=== PATIENT | female | born 1940 | race Caucasian/White ===

== ENCOUNTER → 2017-03-03 | Outpatient (CLI) | payer MEDICARE ==
--- NOTE | 2017-03-03 16:25 | US ---
EXAM DESCRIPTION: Carotid Duplex: ULTRASOUND. CLINICAL HISTORY: MIXED HYPERLIPIDEMIA COMPARISON: MRI scan of the brain on the same visit. TECHNIQUE: Transcutaneous scanning utilizing 2-dimensional and Doppler modes to evaluate the bilateral carotid systems and vertebral arteries. Percentage of diameter of stenosis or no stenosis recorded will be based upon NASCET criteria. FINDINGS: Peak systolic/end diastolic (CM-Sec) CCA Right 79/9 Left 88/14. ICA Right proximal 75/15, mid 101/20. Left proximal 52/14, Distal 74/15. Vertebral Right 55/6 Left 51/10. ECA (PS Only) Right 72/4 left 71/5. ICA/CCA peak systolic ratio: Right 1.3 Left 1.8 ICA/CCA end diastolic ratio: Right 2.3 Left 1.1 Vertebral arteries: antegrade flow. Comments: Lateral atherosclerotic calcification in the common carotid bulbs and proximal ICAs. Turbulent color flow in the mid and distal right ICA with spectral broadening. Area stenosis in the right common carotid bulb is 67%; diameter stenosis 70%. Area stenosis in the proximal right ICA 47%; diameter stenosis 63%. Color turbulent flow in the proximal left ICA with spectral broadening. Area stenosis in the left common carotid bulb 44%; diameter stenosis 58%. Area stenosis in the proximal left ICA 51%; diameter stenosis 48%. IMPRESSION: 1. Doppler evaluation of the bilateral carotid systems and vertebral arteries shows borderline significant/critical stenosis in the right common carotid bulb. Consider correlation with MRA or CTA with contrast. 2. Significant amount of calcified plaque seen in the carotid arteries bilaterally. Bilateral vertebral arteries showed antegrade-cephalad flow. Electronically signed by: Jerry George MD 03/03/2017 4:24 PM CDT
--- NOTE | 2017-03-03 17:24 | MRI ---
EXAM DESCRIPTION: Brain w/o Contrast MRI. CLINICAL HISTORY: TIA, dysarthria one month ago. COMPARISON: The duplex ultrasound evaluation carotid and vertebral vessels on this visit. TECHNIQUE: Multiplanar, high-field MRI unit, multiple diffusion sequences, multiple conventional sequences without contrast. FINDINGS: Multiple bilateral foci of bright FLAIR and T2-weighted signal in the periventricular white matter and suarez-white matter junctions of the cerebral hemispheres . No dominant lesion at the ventricular level and lower tracts. Also similar signal bilateral tracts at the superior basal ganglia. No hemorrhage, no cerebral edema, no mass-effect. Normal signal in the brainstem and cerebellar hemispheres. No hemorrhage, no cerebral edema, no mass-effect. Concordance of the diffusion and non-diffusion sequences with no evidence of acute or subacute infarction. Cortical sulci, ventricles, and other CSF spaces, and the subdural spaces are minimally prominent in the frontal and parietal lobes. No effacement or displacement. No midline shift. No extra-axial hemorrhage. Normal flow signal void in the major vessels of the [place]donado, and the venous sinuses. IACs are symmetric bilaterally. Right FLAIR and T2 signal in the right mastoid air cells. No mass effect with normal signal in the bilateral cerebellopontine angles. Pituitary gland borderline enlarged. No CSF signal in the sella. Metallic susceptibility artifact in the sphenoid air cell region anterior to the sella. Base of the cerebellar tonsils is above the foramen magnum. Muco- periosteal thickening in the superior paranasal sinuses. The bony calvarium is intact. IMPRESSION: 1. Periventricular and subcortical white matter signal changes bilaterally relatively symmetric. Most likely related to cerebral microvascular disease. Less likely related to migraine sequela or demyelinating process. No hemorrhage, no mass effect, no midline shift. 2. Pituitary gland appears slightly enlarged. No CSF in the sella. Possible postsurgical artifact in the sella. Correlate for clinical findings of pituitary dysfunction. 3. Minimal chronic paranasal sinusitis. Right mastoid chronic versus acute sinusitis. Electronically signed by: Jerry George MD 03/03/2017 5:23 PM CDT
== END | disposition home or self-care (01) ==
LOC: MRI 10:28
PROVIDERS: ATTEND Family Medicine
DX: I65.23 Occlusion and stenosis of bilateral carotid arteries (principal); J32.9 Chronic sinusitis, unspecified; I50.9 Heart failure, unspecified; E78.2 Mixed hyperlipidemia

== ENCOUNTER → 2017-03-06 | Outpatient (CLI) | payer MEDICARE | END | disposition home or self-care (01) | LOC: GMAM 15:06 | PROVIDERS: ATTEND Family Medicine | DX: E23.6 Other disorders of pituitary gland (principal); R93.0 Abnormal findings on diagnostic imaging of skull and head, not elsewhere classified ==

== ENCOUNTER → 2017-03-12 | Outpatient (CLI) | payer MEDICARE ==
--- NOTE | 2017-03-13 10:39 | CT ---
EXAM DESCRIPTION: CTA Neck CLINICAL HISTORY: 76 years, Female, STENOSIS COMPARISON: None TECHNIQUE: CTA of the neck was performed with IV contrast including 3D reformatted images. This exam was performed according to our departmental dose-optimization program, which includes automated exposure control, adjustment of the mA and/or kV according to patient size and/or use of iterative reconstruction technique. FINDINGS: All diameter measurements and percent stenosis values in this report are based on NASCET criteria. The aortic arch, innominate and visualized portions of the subclavian arteries are unremarkable. Postoperative changes in the mediastinum are only partially visualized. There are some densely calcified plaque in the right carotid bifurcation resulting in only mild (20-30%) stenosis of the proximal right ICA. More distal portions of the right ICA are unremarkable. There is calcified and noncalcified plaque in the left carotid bifurcation extending into the left ICA without significant left ICA stenosis. The left vertebral artery is dominant, but the vertebral arteries are otherwise unremarkable. Calcification involves cavernous segments of the internal carotid arteries bilaterally. No apical lung lesion. No suspicious thyroid nodule. Degenerative changes are noted at the atlantoodontoid joint. IMPRESSION: Bilateral carotid artery disease as detailed above resulting in only mild (20-30%) right ICA stenosis. No left ICA stenosis. Electronically signed by: Mehul Hathaway MD 03/13/2017 10:38 AM [employer]
== END | disposition home or self-care (01) ==
LOC: CT 10:12
PROVIDERS: ATTEND Family Medicine
DX: I63.239 Cerebral infarction due to unspecified occlusion or stenosis of unspecified carotid artery (principal); I25.10 Atherosclerotic heart disease of native coronary artery without angina pectoris; R93.0 Abnormal findings on diagnostic imaging of skull and head, not elsewhere classified

== ENCOUNTER → 2017-11-11 | Outpatient (CLI) | payer MEDICARE | LOC: GMAM 16:54 | PROVIDERS: ATTEND Family Medicine | DX: R53.82 Chronic fatigue, unspecified (principal); R73.9 Hyperglycemia, unspecified; F51.12 Insufficient sleep syndrome; G47.10 Hypersomnia, unspecified ==

== ENCOUNTER → 2018-01-07 | Outpatient (CLI) | payer MEDICARE ==
--- NOTE | 2018-01-07 16:43 | MRI ---
EXAM DESCRIPTION: Lumbar Spine w/o Contrast : Magnetic Resonance Imaging. CLINICAL HISTORY: OTHER INTERVERTEBRAL DISC DEGENERATION, LUMBAR REGION COMPARISON: None. TECHNIQUE: Multiplanar, multiple standard sequences, non contrast MRI, lumbar spine. FINDINGS: L5-S1: Normal signal in the disc and disc space preserved. Posterior elements unremarkable. Minimal narrowing of the right foramen. Canal and left foramen are patent. L4-5: Disc desiccation and minimal disc space loss. Grade 2 Modic endplate changes anterior and to the right of midline with more disc space loss. Disc spur complex encroaching on the soft tissues and right neural foramen with stenosis. Inferior bulge of the disc in the right side of the canal abutting the descending right L5 nerve and the subarticular recess. Borderline right paracentral canal stenosis. Right facet arthrosis and ligament hypertrophy. Mild narrowing of the left foramen. L3-4: Disc desiccation and moderate disc space loss. Modic type II endplate reactive changes in the midline and more to the left of midline. Posterior broad-based disc bulge with disc spur complex encroaching on the left foramen which is moderately narrowed. Right side L4 spondylolysis. Bilateral facet arthrosis and flavum ligament hypertrophy with borderline canal stenosis. Mild right foraminal narrowing. L2-3: Disc desiccation and posterior broad-based disc bulge. Disc bulging more on the left and below the disc space abutting the left subarticular recess and descending left L3 nerve. Ligament hypertrophy and facet arthrosis with mild to moderate canal narrowing. Anterior and left side Modic type III endplate reactive changes. Encroaching on the foramen which is stenotic and abutting the left L2 nerve. Anterior disc bulging and right foramen patent. Minimal disc space loss. L1-2: Disc desiccation with tiny posterior bulge. Bilateral flavum ligament hypertrophy with mild canal narrowing. Moderate narrowing of the left foramen with right foramen patent. Well-circumscribed hyperintense T1 and T2 signal in the L1 vertebral body. T12-L1: Disc desiccation with tiny posterior bulge. Superior displacement of the inferior endplate with fragmentation and marrow edema involving most of the T12 vertebral body. Not extending into the pedicles on either side. Minimal retropulsion of the inferior T12 endplate but not abutting the conus at this level. Posterior disc bulge but not involving the conus. Bilateral moderate foraminal narrowing. Minimal facet arthrosis. Bilateral T11-12 foramina are patent with no disc bulging or retropulsion into the cord. Marked L1-L4 dextroscoliosis. Paravertebral soft tissues show atrophy paraspinal muscles and psoas muscles more on the left.. Otherwise normal marrow signal in the remaining vertebral bodies and the posterior elements. Vertebral bodies are not compressed at any level. IMPRESSION: 1. Multiple levels of disc degeneration and disc desiccation, disc space loss, spondylosis, facet arthrosis and ligament hypertrophy, canal narrowing or stenosis and foraminal narrowing or stenosis. 2. Moderate spondylosis on the right at L4-5 encroaching on the foramen with stenosis. Also disc bulging into the canal and the right and below the disc space encroaching on the right subarticular recess and the descending right L5 nerve. 3. Moderate spondylosis L3-4 to the left of midline encroaching on the left foramen. Right side L4 pars spondylolysis. Borderline canal stenosis. 4. Advanced spondylosis at L2-3 encroaching on the left foramen with stenosis and abutting the left L2 nerve in the foramen. Posterior inferior left disc bulge below the disc space encroaching on the left subarticular recess and the descending left L3 nerve. 5. Recent compression type vertebral body fracture T12 almost 50% compression centrally and minimal retropulsion of the inferior endplate but not encroaching on the conus which terminates at this level. Bilateral moderate foraminal narrowing at this level. Hemangioma L1 vertebral body. Electronically signed by: Jerry George MD 01/07/2018 4:42 PM CDT
== END ==
LOC: MRI 11:00
PROVIDERS: ATTEND Physician Assistant Medical
DX: M51.36 Other intervertebral disc degeneration, lumbar region (principal); M41.26 Other idiopathic scoliosis, lumbar region; M47.896 Other spondylosis, lumbar region; M51.86 Other intervertebral disc disorders, lumbar region

== ENCOUNTER → 2018-05-20 | Outpatient (CLI) | payer MEDICARE ==
--- NOTE | 2018-05-20 17:00 | MRI ---
EXAM DESCRIPTION: Brain w/wo Contrast: Magnetic Resonance Imaging. CLINICAL HISTORY: 77 years Female NECK PAIN COMPARISON: MRI scan of the brain with contrast 03/03/2017. TECHNIQUE: Multiplanar, high-field MRI, multiple conventional sequences, without and with gadolinium IV contrast. No adverse reactions. Multiple axial diffusion sequences. FINDINGS: On the coronal and sagittal 3-D postcontrast images, there is a 4 x 4.5 mm region of nonenhancement in the adenohypophysis of the anterior and left aspect of the pituitary gland. On the T1 fat saturation postcontrast image, a mass is seen on the right adenohypophysis measuring 4 x 5 mm. No abnormal contour of the gland. No displacement of the infundibulum or expansion of the pituitary gland inferiorly anteriorly or posteriorly. Bilateral small focal regions of bright FLAIR and T2-weighted signal in the periventricular white matter and suarez-white matter junctions of the cerebral hemispheres. Mostly in the frontal lobes. . Irregular lesion in the anterior left basal ganglia, and the anterior limb of the left internal capsule measuring 2.1 cm AP, and 1.4 cm wide, and 2.6 cm craniocaudal. Minimal enhancement seen in the medial and inferior aspect of the lesion with irregular low signal central and lateral in the lesion. On the precontrast T1 images, there is suggestion of minimal hemorrhage in the lesion. Minimal diffusion restriction in the anterior superior aspect of the lesion. The adjacent anterior body of the left lateral ventricle is slightly dilated compared to the contralateral right ventricle. This was not seen on the prior MRI scan. No diffusion restriction. No hemorrhage, no cerebral edema, no mass-effect. Normal contrast enhancement. Normal signal in the brainstem and cerebellar hemispheres. No hemorrhage, no cerebral edema, no mass-effect. Normal contrast enhancement. Concordance of the diffusion and non-diffusion sequences with no evidence of acute or subacute infarction. Cortical sulci, ventricles, and other CSF spaces, and the subdural spaces are normally configured. No effacement or displacement. No midline shift. No extra-axial hemorrhage. Normal contrast enhancement. IACs are symmetric bilaterally. No fluid in the bilateral mastoid air cells. No mass effect in the bilateral Cerebellopontine angles. Normal contrast enhancement. Base of the cerebellar tonsils is at the level of the foramen magnum. Swollen mucosa bilateral turbinates. Minimal mucoperiosteal thickening in the ethmoid air cells. Rudimentary frontal sinuses. The bony calvarium is intact. IMPRESSION: 1. Bilateral pituitary microadenomas in the anterior pituitary gland/adenoma apophysis. No expansion into the sinuses, bone, or suprasellar cistern. Pituitary infundibulum is not displaced. 2. Irregularly marginated lesion in the anterior left basal ganglia also involving the anterior limb of the left internal capsule with superior low signal component. This lesion shows peripheral enhancement, hemorrhage, and diffusion restriction. Adjacent ventricle shows slight dilation. Differential includes evolving hemorrhage, hemorrhagic infarction, or hemorrhagic primary or secondary neoplasm. Recommend repeat follow-up MRI study with T2-weighted and gradient echo sequences for better evaluation. Electronically signed by: Jerry George MD 05/20/2018 4:59 PM [employer]
--- NOTE | 2018-05-20 18:15 | MRI ---
EXAM DESCRIPTION: Cervical Spine: MRI. CLINICAL HISTORY: 77 years Female PAIN back and neck pain. Pituitary disorder COMPARISON: MRI scan of the brain without and with gadolinium contrast and MRI scan of the thoracic spine. TECHNIQUE: Multiplanar, high-field MRI, multiple sequences, non-contrast Cervical spine. FINDINGS: C2-C3: Normal signal in the disc and disc space preserved. Canal and foramina are patent. Trace anterolisthesis. Normal facets bilaterally. C3-C4: Disc space preserved with normal signal in the disc. Trace anterolisthesis. Uncinate spur on the right. Minimal narrowing of the neural foramen. Minimal facet arthrosis. Canal and left neuroforamen are patent. C4-5: Disc desiccation and disc space preserved; minimal posterior bulge. Not touching the cord. Mild canal narrowing. Minimal hypertrophic changes in the left facet. Posterior ligaments prominent. Bilateral neural foramina are patent. C5-C6: Minimal disc desiccation and disc space preserved. Small right uncinate spur and minimal narrowing of the right neural foramen. Mild hypertrophy of the posterior ligaments. Mild narrowing of the canal. Left neuroforamen is patent. C6-C7: Normal signal in the disc and disc space preserved. Tiny posterior midline bulge. Facets are unremarkable. Mild canal narrowing. Bilateral neural foramina are patent. Normal signal in the remaining discs with no bulging. Disc spaces preserved. Canal and neural foramina are patent. Facets are unremarkable. Spinal alignment anatomic. No cord compression or cord edema. Atlantoaxial joint minimal arthrosis and hypertrophy. Base of the cerebellar tonsils is at the level of the foramen magnum. Paravertebral soft tissues unremarkable.. Vertebral bodies are not compressed at any level. Normal marrow signal in the remaining vertebral bodies and the posterior elements. IMPRESSION: Some disc desiccation is seen in bulging, but no significant bulging or herniation. Uncinate spurs and facet spurs at some levels. No significant canal narrowing or stenosis. No significant neural foraminal narrowing or stenosis. Normal signal in the cord with no compression. Electronically signed by: Jerry George MD 05/20/2018 6:[address] [employer]
--- NOTE | 2018-05-20 18:32 | MRI ---
EXAM DESCRIPTION: Thoracic Spine w/o Contrast: Magnetic Resonance Imaging. CLINICAL HISTORY: PAIN IN THORACIC SPINE COMPARISON: MRI scan of the cervical spine and brain on this visit. TECHNIQUE: Multiplanar, multiple standard sequences, non contrast MRI, thoracic spine. FINDINGS: Compression type vertebral body fracture T12 with mostly decompression in the central aspect of the disc more to the right of midline in the left. Fracture also noted on the prior lumbar spine MRI 01/07/2018 with insertion of augmentation material into the central and anterior vertebral body. There has been slight reduction in height on the right and left sides of the vertebral body since the lumbar MRI scan. Retropulsion more prominent on the inferior endplate approximately 5 mm and abutting the distal cord. No marrow edema in the bilateral pedicles. T11-12 disc with normal signal and no posterior bulge. Bilateral facet arthrosis. Canal and foramina are patent. Conus terminates at L1. Left T12-L1 foramen stenotic with moderate to severe right neural foraminal narrowing. Decrease in size of the T6-7 disc space with desiccation signal in the disc. Anterior mild endplate changes and ridging. Approximately 3 mm right posterior disc bulge abutting the cord. Disc or bone bulging also seen above the disc space level abutting the cord. No canal or foraminal stenosis. Similar findings in the anterior T5-T6 disc space with the mid and posterior disc space maintained. No posterior disc bulge. Canal and foramina are patent. Desiccation in the remaining discs. No bulging or herniation. Similar anterior endplate changes at T8-9. Disc spaces are preserved. Canal and foramina are patent. No scoliosis. Facet joints are unremarkable. Cord with normal signal, no compression. Hyperintense circumscribed T1 and T2 signal in the superior T3 vertebral body consistent with a hemangioma. Paravertebral soft tissues are unremarkable. Normal marrow signal in the remaining vertebral bodies and the posterior elements. Remaining vertebral bodies are not compressed at any level. IMPRESSION: 1. Slightly more reduction in height of the central and anterior T12 vertebral body since the prior lumbar MRI scan in January 2018. Retropulsion of the inferior endplate 5 mm abutting the cord. Vertebral body augmentation is been performed since the prior lumbar MRI. Moderate canal narrowing but no neural foraminal stenosis at T11-12. Right T12-L1 foramen is stenotic and nearly stenotic on the left. 2. No compression type vertebral body fractures at other levels. Anterior disc space spondylosis and desiccation at T8-9, T6-7, and T5-6. Posterior right paracentral T6-7 disc bulge with bony hypertrophy abutting the right anterior cord but no compression or canal stenosis. Electronically signed by: Jerry George MD 05/20/2018 6:31 PM [facility]
== END ==
LOC: MRI 08:07
PROVIDERS: ATTEND Family Medicine
DX: E23.6 Other disorders of pituitary gland (principal); D35.2 Benign neoplasm of pituitary gland; M54.12 Radiculopathy, cervical region; M54.6 Pain in thoracic spine

== ENCOUNTER → 2018-06-08 | Outpatient (CLI) | payer MEDICARE ==
--- NOTE | 2018-06-09 08:59 | MRI ---
EXAM DESCRIPTION: Brain w/wo Contrast: Magnetic Resonance Imaging. CLINICAL HISTORY: 77 years Female ABNORMAL IMAGING COMPARISON: MRI scan of the brain and pituitary gland without and with gadolinium, 05/20/2018. MRI scan of the brain without contrast 03/03/2017.. TECHNIQUE: Multiplanar, high-field MRI, multiple conventional sequences, without and with gadolinium IV contrast. No adverse reactions. Multiple axial diffusion sequences. FINDINGS: Again noted is a elongated irregular region of abnormal signal within base in the anterior left basal ganglia and extending superiorly and medially across the anterior limb of the left internal capsule. Involving the centrum semiovale abutting the anterior body of the left lateral ventricle and the frontal horn of the left lateral ventricle. No mass effect on the anterior lateral ventricle but slight dilation. Enhancement in the inferior aspect of the lesion in the anterior left basal ganglia and the centrum semiovale. No significant diffusion restriction. No hemosiderin or old hemorrhage. Normal flow signal void in the major vessels of the [place], and the venous sinuses. IACs are symmetric bilaterally. Normal signal in the bilateral mastoid air cells. No mass effect in the bilateral cerebellopontine angles. Normal contrast enhancement. Pituitary gland occupies most of the sella. Normal contrast enhancement. Base of the cerebellar tonsils is above the foramen magnum. Minimal mucoperiosteal thickening in the bilateral paranasal sinuses. The bony calvarium is intact. IMPRESSION: Lesion in the left basal ganglia extending superiorly across the left anterior limb internal capsule to the anterior left frontal centrum semiovale. Superior region of encephalomalacia in the centrum semiovale. Irregular hyperintensity T1 pre and postcontrast, so enhancement less likely. Minimal hypointensity on GRE, T2*. Minimal if any diffusion restriction. Atrophy with no mass effect and slight enlargement of the anterior body of the left ventricle. 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 The onset was in the interval since MRI scan of February 2017. Otherwise matter changes are age-related and/or cerebral microvascular disease, stable since February 2017. Electronically signed by: Jerry George MD 06/09/2018 8:57 AM [facility] [email or web address]]
== END ==
LOC: MRI 09:00
PROVIDERS: ATTEND Family Medicine
DX: R93.0 Abnormal findings on diagnostic imaging of skull and head, not elsewhere classified (principal)

== ENCOUNTER 2018-06-09 11:22 | Emergency (ER) | payer MEDICARE ==
[2018-06-09] MEDS ORDERED: SODIUM CHLORIDE 0.9% (FLUSH) 10 ML SYG IV PRN (11:32)
--- NOTE | 2018-06-09 11:35 | ED.PDOC ---
History of Present Illness - General Chief Complaint: Neuro Symptoms/Deficits Stated Complaint: AMS PER EMS Time Seen by Provider: 06/09/18 11:27 Source: police, EMS Exam Limitations: other - ACUTE DELIRIUM - History of Present Illness Initial Comments: H/O TIA 2017. PT WAS IN HER USUAL STATE AND DROVE HERSELF TO PCP APPT THIS MORNING. AROUND [address] APPT, THE POLICE PULLED HER OVER FOR RUNNING A RED LIGHT. SHE STATED SHE WAS DRIVING HOME BUT THE POLICE NOTED SHE WAS DRIVING THE WRONG DIRECTION. THEY CALLED EMS. PT'S SITUATION WORSENED IN ER TO WHERE SHE NOW IS NOT COMMANDING. VSS AND NOT HYPOXIC BUT PT IS MOVING BUE AND BLE AND SEEMS AGITATED, THUS GIVING SMALL DOSE OF ATIVAN TO KEEP HER STILL ENOUGH TO PERFORM HEAD CT. Timing/Duration: increasing Severity: severe Improving Factors: nothing Worsening Factors: nothing Allergies/Adverse Reactions: Allergies NO KNOWN ALLERGY Allergy (Verified 06/09/18 11:45) Review of Systems - Review of Systems Unable to Obtain Due To: condition - ACUTE DELIRIUM Family Medical History - Family History Mother Family History: Unknown Living Status: Unknown Physical Exam - Physical Exam General Appearance: Agitated, Restless, Well Groomed Eye Exam: bilateral normal ENT Exam: normal ENT inspection, TMs normal, pharynx normal Neck: non-tender, full range of motion, supple, normal inspection Respiratory: chest non-tender, lungs clear, normal breath sounds, no respiratory distress, no accessory muscle use Cardiovascular/Chest: normal peripheral pulses, regular rate, rhythm, no JVD, no murmur Peripheral Pulses: radial,right: 1+, radial,left: 1+ Gastrointestinal/Abdominal: normal bowel sounds, non tender, soft, no organomegaly, no pulsatile mass Back Exam: normal inspection, no CVA tenderness Extremities Exam: normal range of motion, no evidence of injury Mental Status: disoriented x 3, other - PT'S EYES ARE OPEN BUT SHE IS JUST LOOKING 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 Coordination/Gait: other - UNABLE TO TEST, PT NOT COMMANDING. Motor/Sensory: no sensory deficit, no pronator drift, negative Babinski's sign DTR: 3+: Biceps, left, Biceps, right, Patellar, left, Patellar, right Skin Exam: normal color, warm/dry Progress - Progress Progress: 06/09/18 14:12 RLL PNE (ELEV WBC AND NEUTS, R CXR INFILTRATE, FEVER IN ER) - I STARTED IV ROCEPHIN 1 G AND AZITHROMYCIN 500 MG. PNE DOES NOT ACCOUNT FOR HER APHASIA AND AMS, THUS NEUROLOGY W/U WARRANTED THUS TRANSFERRING TO [facility] FOR HIGHER LEVEL OF CARE. CT HEAD NEG. UNABLE TO STRA IGHT CATH FOR UA DUE TO PT MOVEMENT. 06/09/18 14:13 LABS UNREMARKABLE: CARDIAC ENZ, CMP, COAGULATION PANEL. EKG NSR. 06/09/18 14:25 THANK YOU, DR. YAN AND [facility], FOR ACCEPTING FURTHER CARE OF THIS PT. Departure - Departure Clinical Impression: Aphasia, Neutrophilic leukocytosis, Acute delirium Altered mental state Qualifiers: Altered mental status type: delirium Qualified Code(s): R41.0 - Disorientation, unspecified RLL pneumonia Qualifiers: Pneumonia type: due to unspecified organism Qualified Code(s): J18.1 - Lobar pneumonia, unspecified organism Fever Qualifiers: Fever type: due to other condition Qualified Code(s): R50.81 - Fever presenting with conditions classified elsewhere Disposition: Transfer to Hospital Condition: Poor Departure Forms: ED Discharge - Pt. Copy, Patient Portal Self Enrollment, School Release Form Referrals: Tristen Khalil MD [Primary Care Provider] - 1-2 Weeks Transfer to Outside Facility - Transfer Information Accepting Facility: [facility] Reason for Transfer: specialized care not available
--- NOTE | 2018-06-09 12:15 | CT ---
EXAM DESCRIPTION: Head CLINICAL HISTORY: ACUTE AMS, CONCERN FOR STROKE COMPARISON: Previous MRI examination of the brain June 08, 2018 at 9:14 AM TECHNIQUE: Noncontrast head CT was performed with routine protocol. FINDINGS: Old lacunar infarct in the left basal ganglial region is seen. This was present on the MRI exam yesterday. Otherwise normal suarez-white matter differentiation. Ventricles and sulci are normal for age. No change compared to previous day's study. No high density hemorrhage, focal edema or shift of the midline. No sulcal effacement. Normal orbital contents. Basilar cisterns appear clear. Intact calvarium with no fracture or lytic lesion. Normal aeration of tympanic cavities and mastoid air cells. No fluid levels in the paranasal sinuses. Skull base appears intact. Symmetrical internal auditory canals. Coronal and sagittal reformatted images confirm the findings. IMPRESSION: No acute intracranial pathologic process. This exam was performed according to our departmental dose-optimization program, which includes automated exposure control, adjustment of the mA and/or kV according to patient size and/or use of iterative reconstruction technique. Total DLP equals 859.97 mGycm. Electronically signed by: Ray Harper MD 06/09/2018 12:12 PM ELECTRICAL MECHANICAL TECHNICIAN
--- NOTE | 2018-06-09 13:11 | RAD ---
EXAM DESCRIPTION: Chest,1 View CLINICAL HISTORY: 77 years Female, ACUTE AMS COMPARISON: None. TECHNIQUE: AP portable chest. FINDINGS: Heart size is large with increased central pulmonary vascularity. Sternotomy wires are present. Patchy infiltrate or atelectasis is seen in the right lower lobe. This could represent mild pneumonia. No pulmonary mass or worrisome nodule. No pneumothorax or pleural effusion. Bones are osteoporotic. Dextroscoliotic curvature of the lumbar spine. Old vertebroplasty at compressed L1. IMPRESSION: Patchy infiltrate or partial volume loss in the right lower lobe. Prominent heart with mildly increased vascularity. Electronically signed by: Ray Harper MD 06/09/2018 1:09 PM SALES ACCOUNT REPRESENTATIVE
[2018-06-09] MEDS: cefTRIAXone SODIUM 1 GM in SODIUM CHL 0.9% 50ML MIN-BAG+ 50 ML IVPB ONE (14:10)
[2018-06-09 14:15] VITALS: TEMP 100.8
[2018-06-09] MEDS ORDERED: AZITHROMYCIN IV 500 MG VIAL IVPB ONE (14:17)
[2018-06-09] MEDS ORDERED: SODIUM CHL 0.9% 50ML MIN-BAG+ 50 ML IVPB ONE (14:17)
[2018-06-09] MEDS ORDERED: cefTRIAXone SODIUM 1 GM VIAL ONE (14:17)
[2018-06-09] MEDS ORDERED: SODIUM CHLORIDE 0.9% 250ML 250 ML ONE (14:17)
[2018-06-09] MEDS: ONDANSETRON ODT 8 MG TAB SL ONE (14:29)
[2018-06-09] MEDS: AZITHROMYCIN IV 500 MG in SODIUM CHLORIDE 0.9% 250ML 250 ML IVPB ONE (14:39)
[2018-06-09 15:07] VITALS: BP 132/66; O2SAT 95
== END 2018-06-09 15:25 | disposition short-term general hospital (02) ==
LOC: ER 11:22
DX: R41.0 Disorientation, unspecified (principal); R47.01 Aphasia; J18.1 Lobar pneumonia, unspecified organism; D72.828 Other elevated white blood cell count
CPT/HCPCS: 70450; 71045; 80053; 82550; 82553; 82948; 84484; 85025; 85610; 85730; 93005; J0456; J0696; J2060; J7050

== ENCOUNTER 2018-07-13 19:39 | Emergency (ER) | payer MEDICARE ==
--- NOTE | 2018-07-13 20:27 | ED.PDOC ---
History of Present Illness - General Chief Complaint: Syncope/Near Syncope Stated Complaint: passed out Time Seen by Provider: 07/13/18 20:23 Source: patient, RN notes reviewed, Vital Signs reviewed, family Additional Information: 77 YEAR OLD WHITE FEMALE BROUGHT HERE FOR EVALUATION SYNCOPE 2-3 TIMES IN THE LAST WEEK LASTING FEW MIN TODAY IT HAPPENED WHILE SHE WAS SITTING AT A TABLE SHE ALSO HAS BEEN HAVING DELUSIONAL THOUGHTS PER FAMILY LAST MONTH SHE WAS TAKEN BY [employer] SHE WAS DRIVING AROUND [place]AR [place] NOT ORIENTED SHE WAS SEEN BY HER PCP DR [place] TODAY WHO HAD ASKED FOR OUT PATIENT CONSULTATIONS SHE HAS NO CHEST PAIN NO PALPITATIONS NO SEIZURES NO SHORTNESS OF BREATH ASSOCIATED WITH THE FAINTING SPELLS PHYSICAL ALERT HEENT NORMAL [facility] PHARMACIST CRITICAL CARE NO FOCAL DEFICIT ALERT AND ORIENTED X 3 CVS SYSTOLIC MURMUR CONDUCTED TO THE CAROTID R/O AORTIC STENOSIS NO PEDAL EDEMA RS CLEAR LUNGS NO RALES RHONCHI OR HYPOXIA ABD SOFT BENIGN - History of Present Illness Severity: moderate Worsening Factors: nothing Associated Symptoms: denies symptoms Allergies/Adverse Reactions: Allergies NO KNOWN ALLERGY Allergy (Verified 07/13/18 19:57) Home Medications: Ambulatory Orders Lisinopril 20 mg PO DAILY 07/13/18 Quetiapine Fumarate [Seroquel] 25 mg PO BEDTIME 07/13/18 Review of Systems - Review of Systems Constitutional: States: no symptoms reported EENTM: States: no symptoms reported Respiratory: States: no symptoms reported Cardiology: States: no symptoms reported Gastrointestinal/Abdominal: States: no symptoms reported Genitourinary: States: no symptoms reported Musculoskeletal: States: no symptoms reported Skin: States: no symptoms reported Neurological: States: no symptoms reported Endocrine: States: no symptoms reported Hematologic/Lymphatic: States: no symptoms reported Past Medical History (General) - Patient Medical History Hx Seizures: No Hx Stroke: No Hx Dementia: No Hx Asthma: No Hx of COPD: No Hx Cardiac Disorders: Yes - ASCVD; hyperlipidemia Hx Congestive Heart Failure: Yes Hx Pacemaker: No Hx Hypertension: Yes Hx Thyroid Disease: No Hx Diabetes: No Hx Gastroesophageal Reflux: Yes Hx Renal Disease: No Hx Cancer: No Hx of HIV: No Hx Hepatitis C: No Hx MRSA: No Surgical History: other - Vaccination History Hx Influenza Vaccination: No Hx Pneumococcal Vaccination: Yes - 11/11/17 Family Medical History - Family History Mother Family History: Unknown Living Status: Unknown Physical Exam - Physical Exam General Appearance: Alert, Comfortable Eye Exam: bilateral normal, bilateral abnormal EOM, bilateral abnormal pupil, bilateral conjunctivae pale Ears, Nose, Throat: hearing grossly normal, normal ENT inspection, normal pharynx, other - THYROID IS PROMINANT Neck: non-tender, full range of motion, supple Respiratory: chest non-tender, lungs clear, normal breath sounds, no respiratory distress, no accessory muscle use Cardiovascular/Chest: normal peripheral pulses, regular rate, rhythm, no edema, no gallop, no JVD, systolic murmur Peripheral Pulses: radial,right: 2+, radial,left: 2+, femoral,right: 2+, femoral,left: 2+ Gastrointestinal/Abdominal: normal bowel sounds, non tender, soft, no organomegaly, no pulsatile mass 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, no motor/sensory deficits, alert, normal mood/affect, oriented x 3 Skin Exam: normal color, warm/dry Lymphatic: no adenopathy Progress - Results/Orders Results/Orders: Laboratory Tests 07/13/18 07/13/18 07/13/18 20:00 20:00 20:00 WBC 8.2 RBC 4.12 L Hgb 12.5 Hct 37.8 MCV 91.8 MCH 30.3 MCHC 33.0 RDW 15.8 H Plt Count 257 MPV 9.4 Absolute Neuts (auto) 5.10 Absolute Lymphs (auto) 1.80 Absolute Monos (auto) 1.00 H Absolute Eos (auto) 0.30 Absolute Basos (auto) 0.10 Neutrophils % 61.5 Lymphocytes % 21.8 Monocytes % 12.1 H Eosinophils % 3.5 Basophils % 1.1 Sodium 137 Potassium 3.6 Chloride 104 Carbon Dioxide 23 Anion Gap 13.6 BUN 16 Creatinine 0.60 BUN/Creatinine Ratio 26.7 H Random Glucose 75 Serum Osmolality 273.7 L Calcium 9.2 Total Bilirubin 0.4 AST 17 ALT 15 Alkaline Phosphatase 105 Troponin I < 0.02 Serum Total Protein 6.9 Albumin 3.6 Globulin 3.3 Albumin/Globulin Ratio 1.1 - EKG/XRAY/CT EKG: Sinus, nonspecific ST T wave Chg, ST depression Comments: NO ACUTE INJURY NON PROGRESSION OF R WAVE IN ANTEROSEPTAL LEADS Departure - Departure Clinical Impression: Syncope and collapse, Lacunar infarction Disposition: Discharge to Home or Self Care Departure Forms: ED Discharge - Pt. Copy, Patient Portal Self Enrollment Referrals: Tristen Washington MD [Primary Care Provider] - 1-2 Weeks Home Medications: Ambulatory Orders Lisinopril 20 mg PO DAILY 07/13/18 Quetiapine Fumarate [Seroquel] 25 mg PO BEDTIME 07/13/18 Transfer to Outside Facility - Transfer Information Accepting Provider:: DR REID Accepting Facility: [facility] Reason for Transfer: required specialist not available
[2018-07-13] MEDS ORDERED: SODIUM CHLORIDE 0.9% 1000ML 1,000 ML IVS ONE (20:30)
--- NOTE | 2018-07-13 20:57 | RAD ---
EXAM: Chest,1 View CLINICAL INDICATION: Altered mental status COMPARISON: There is no previous study for comparison. FINDINGS: A single view of the chest was obtained. The heart size is normal. 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 The pulmonary vascularity is unremarkable. The lungs are clear. There is no consolidation, infiltrate, pleural effusion, or pneumothorax. IMPRESSION: No evidence of active pulmonary disease. Electronically signed by: Moiz Anderson MD 07/13/2018 8:54 PM CDT
--- NOTE | 2018-07-13 21:23 | CT ---
EXAM: CT head without contrast CLINICAL INDICATION: Altered mental status COMPARISON: 06/09/2018 TECHNIQUE: The CT scan was done using contiguous axial 2.5 mm sections through the brain. This exam was performed according to our departmental dose-optimization program, which includes automated exposure control, adjustment of the mA and/or kV according to patient size and/or use of iterative reconstruction technique. FINDINGS: There is no midline shift, mass effect, or extraaxial fluid collection. There is no evidence of acute intracranial hemorrhage, mass lesion, or cerebral edema. Diffuse moderate cerebral atrophy is noted. There is an old, prominent lacunar infarct in the left frontal white matter which appears unchanged from the previous study. A tiny old lacunar infarct is noted in the right vinnie as well. No other focal abnormality is seen in the brain. Bone window images reveal no evidence of a skull fracture. IMPRESSION: No evidence of an acute intracranial process. Electronically signed by: Moiz Anderson MD 07/13/2018 9:19 PM CDT
[2018-07-14 01:01] VITALS: BP 169/79; TEMP 99.2; O2SAT 96
== END 2018-07-14 01:05 | disposition short-term general hospital (02) ==
LOC: ER 19:39
DX: R55 Syncope and collapse (principal); I63.81 Other cerebral infarction due to occlusion or stenosis of small artery; I25.10 Atherosclerotic heart disease of native coronary artery without angina pectoris; E78.5 Hyperlipidemia, unspecified; I50.9 Heart failure, unspecified; I11.0 Hypertensive heart disease with heart failure; K21.9 Gastro-esophageal reflux disease without esophagitis; Z79.899 Other long term (current) drug therapy
CPT/HCPCS: 36415; 70450; 71045; 80053; 81001; 84484; 85025; 93005; J7030

== ENCOUNTER → 2018-08-27 | Outpatient (CLI) | payer MEDICARE ==
--- NOTE | 2018-08-27 17:32 | MRI ---
EXAM DESCRIPTION: Abdomen w/wo Contrast CLINICAL HISTORY: 77 years Female, ABNORMAL FINDINGS ON RADIOLOGICAL EXAM OF GASTRO TRACT COMPARISON: None. TECHNIQUE: Multiplanar multisequence noncontrast imaging of the abdomen and upper pelvis with postcontrast imaging following gadolinium enhancement. FINDINGS: Bilateral breast implants are noted in place with suspected intracapsular rupture of the right implant without extravasation in the extracapsular region. Advanced scoliosis of the lumbar spine convex to the right is present. A very small sliding-type hiatal hernia is suspected. The distal pancreatic body and tail are abnormal and demonstrate what appear to be multiple small subcentimeter and centimeter sized cystic structures that extend into the tail in the region of the splenic hilum. Review of recent CT examination suggest the structures are hypodense rather than hyperdense as reported. 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 No further evaluation at this time is recommended. The pancreatic head and neck and proximal and mid body are normal in appearance. Consider 6-12 months follow-up examination with either multiphase pancreatic protocol CT or repeat MRI examination without and with contrast enhancement. Liver normally enhances without worrisome cystic or solid mass in the gallbladder is normally distended without definite ductal dilatation. Moderately prominent common hepatic duct without definite obstructing stone in the tapering distal common duct is noted. The kidneys normally enhance without significant cystic or solid mass. No hydronephrosis is noted. The aorta and vena cava are unremarkable except for tortuosity without retroperitoneal adenopathy and no abnormality of the adrenal glands noted. No abdominal ascites is seen. IMPRESSION: 1. 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 The pancreatic head neck proximal and mid body are normal in appearance. Consider 6-12 month follow-up examination for stability with repeat MR without and with contrast enhancement or pancreatic protocol CT without and with contrast enhancement. 2. Normal appearance of the gallbladder with noted wall thickening or mass and no abnormality of the liver noted with moderate dilation of the common hepatic duct with very little intrahepatic or distal common duct dilation. Correlation with liver function studies recommended. 3. Specific abnormality in the lower abdomen or upper pelvis in the region of the right colon is not identified. 4. Scoliosis of the spine with degenerative changes 5. Bilateral breast implants with suspected intracapsular rupture of the right implant. Electronically signed by: Tristen Rice MD 08/27/2018 5:30 PM CDT
== END ==
LOC: MRI 08:00
PROVIDERS: ATTEND Family Medicine
DX: R93.3 Abnormal findings on diagnostic imaging of other parts of digestive tract (principal); M41.9 Scoliosis, unspecified; Z98.82 Breast implant status

== ENCOUNTER → 2018-11-24 | Outpatient (CLI) | payer MEDICARE | LOC: GMAM 09:42 | PROVIDERS: ATTEND Family Medicine | DX: D64.9 Anemia, unspecified (principal); E78.5 Hyperlipidemia, unspecified; E11.9 Type 2 diabetes mellitus without complications; N18.9 Chronic kidney disease, unspecified ==

== ENCOUNTER → 2019-12-14 | Outpatient (CLI) | payer MEDICARE | LOC: YCHH 08:31 | PROVIDERS: ATTEND Family Medicine | DX: R79.89 Other specified abnormal findings of blood chemistry (principal); E78.5 Hyperlipidemia, unspecified; D64.9 Anemia, unspecified ==

== ENCOUNTER 2020-03-28 12:24 | Observation (INO) | payer MEDICARE ==
[2020-03-28] MEDS ORDERED: ASPIRIN TABLET 325 MG TAB PO ONE (12:38)
[2020-03-28] MEDS ORDERED: SODIUM CHLORIDE 0.9% (FLUSH) 10 ML SYG IV PRN ×2 (12:38→18:41)
--- NOTE | 2020-03-28 13:41 | CT ---
EXAM: Head CLINICAL HISTORY: Confusion COMPARISON STUDY: CT head from July 13, 2018 TECHNICAL: Non-contrasted CT images of the brain were performed. FINDINGS: There is mild diffuse cerebral and cerebellar atrophy. There are mild periventricular white matter low-density changes suggesting microvascular disease. Small basal ganglion lacunar infarcts are present. The left frontal white matter infarction is unchanged. There is no intracranial hemorrhage, mass, or mass effect. There are no imaging findings that would suggest an acute territorial infarction. The calvarium is intact. Intracranial atherosclerotic calcifications are present. IMPRESSION: MILD ATROPHY AND MICROVASCULAR WHITE MATTER CHANGES WITHOUT CHANGES OF AN ACUTE INTRACRANIAL ABNORMALITY. ACUTE INFARCT MAY BE INAPPARENT ON A BACKGROUND OF MICROVASCULAR DISEASE. MRI CAN BE PERFORMED IF CLINICALLY INDICATED. This exam was performed according to our departmental dose-optimization program, which includes automated exposure control, adjustment of the mA and/or kV according to patient size and/or use of iterative reconstruction technique. Electronically signed by: Daryn Zhong MD 03/28/2020 1:40 PM [facility]
--- NOTE | 2020-03-28 13:42 | RAD ---
EXAM: Chest,1 View CLINICAL HISTORY: Confusion COMPARISON STUDY: Chest x-ray from July 13, 2018 TECHNIQUE: Single view chest x-ray FINDINGS: Single view of the chest demonstrates an enlarged cardiac silhouette. There is no overt edema or visible central vascular congestion. No large effusion is identified. There is no consolidation. Sternotomy wires are present. IMPRESSION: CARDIOMEGALY WITHOUT ACUTE ABNORMALITY. Electronically signed by: Daryn Zhong MD 03/28/2020 1:41 PM [facility]
[2020-03-28] MEDS ORDERED: ONDANSETRON INJ 4 MG/2 ML VIAL ONE (13:44)
[2020-03-28] MEDS ORDERED: ONDANSETRON INJ 4 MG/2 ML VIAL IV ONE (13:47)
--- NOTE | 2020-03-28 13:56 | ED.PDOC ---
History of Present Illness - General Chief Complaint: Neuro Symptoms/Deficits Stated Complaint: altered mental status Time Seen by Provider: 03/28/20 12:38 Source: patient, RN notes reviewed, Vital Signs reviewed, EMS notes reviewed, other - occasional caregiver Exam Limitations: clinical condition - History of Present Illness Initial Comments: Patient is an 79-year-old white female who presents with concerns for confusion. Patient was last seen normal approximately 930 this morning. Patient's nurse was there at 9:30 in the morning and the patient seemed to be normal. Her caregiver showed up at around noon and noted that the patient was confused and had difficulty answering questions. Obtaining a HPI or review of systems is limited secondary to patient confusion. All information was obtained from the caregiver or EMS. Timing/Duration: 1-3 hours Severity: severe Improving Factors: nothing Worsening Factors: nothing Associated Symptoms: denies symptoms Allergies/Adverse Reactions: Allergies NO KNOWN ALLERGY Allergy (Verified 03/28/20 12:37) Home Medications: Ambulatory Orders Lisinopril 20 mg PO DAILY 07/13/18 Quetiapine Fumarate [Seroquel] 25 mg PO BEDTIME 07/13/18 Atorvastatin Calcium [Lipitor] 40 mg PO BEDTIME 03/28/20 Clopidogrel Bisulfate [Plavix] 75 mg PO DAILY 03/28/20 Gabapentin 100 mg PO BEDTIME 03/28/20 Review of Systems - Review of Systems Constitutional: States: no symptoms reported, see HPI. Denies: fever, malaise, weakness EENTM: Denies: no symptoms reported Respiratory: States: no symptoms reported Cardiology: States: no symptoms reported Gastrointestinal/Abdominal: States: no symptoms reported Genitourinary: States: no symptoms reported Musculoskeletal: States: no symptoms reported Neurological: States: other - confusion Endocrine: States: no symptoms reported Unable to Obtain Due To: clinical condition All other Systems: No Change from Baseline Past Medical History (General) - Patient Medical History Hx Seizures: No Hx Stroke: No Hx Dementia: No Hx Asthma: No Hx of COPD: No Hx Cardiac Disorders: Yes - ASCVD; hyperlipidemia Hx Congestive Heart Failure: Yes Hx Pacemaker: No Hx Hypertension: Yes Hx Thyroid Disease: No Hx Diabetes: No Hx Gastroesophageal Reflux: Yes Hx Renal Disease: No Hx Cancer: No Hx of HIV: No Hx Hepatitis C: No Hx MRSA: No Surgical History: no surgical history - Vaccination History Hx Influenza Vaccination: No Hx Pneumococcal Vaccination: Yes - 11/11/17 - Social History Hx Tobacco Use: No Hx Alcohol Use: No Hx Substance Use: No Hx Substance Use Treatment: No Hx Depression: No Family Medical History - Family History Mother Family History: Unknown Living Status: Unknown Physical Exam - Physical Exam General Appearance: Alert, Anxious, Frail, Well Developed, Well Groomed, Well Hydrated, Well Nourished Eye Exam: bilateral normal Ears, Nose, Throat: hearing grossly normal, normal ENT inspection, normal pharynx Neck: non-tender, full range of motion, supple Respiratory: chest non-tender, lungs clear, normal breath sounds, no respiratory distress Cardiovascular/Chest: normal peripheral pulses, regular rate, rhythm, no edema, no gallop, no JVD, no murmur Peripheral Pulses: radial,right: 2+, radial,left: 2+ Gastrointestinal/Abdominal: normal bowel sounds, non tender, soft, no organomegaly Back Exam: normal inspection, no CVA tenderness, no vertebral tenderness Extremity: normal range of motion, non-tender, normal inspection Neurologic: manager logistic II-XII nml as tested, no motor/sensory deficits, alert, normal mood/affect, other - Patient is only oriented to self. Patient with an expressive aphasia. Patient with some generalized weakness. Skin Exam: normal color, warm/dry Lymphatic: no adenopathy Progress - Progress Progress: Differential diagnosis: Covid, CVA, TIA, UTI among others. 03/28/20 16:30 Patient has improved slightly while here. Her confusion has improved. She is dry by lab values and I have started a [address] is negative for any concerning signs of stroke but it is concerning the patient continues to have this confusion. I have discussed this patient with Corrie Garcia NP, who accepts her for admission. Of discussed this with the patient and her caregiver and they agree with the plan of care. Plan on admission at this time. Cr Luna M.D. #[id number] - Results/Orders Results/Orders: EXAM: Head CLINICAL HISTORY: Confusion COMPARISON STUDY: CT head from July 13, 2018 TECHNICAL: Non-contrasted CT images of the brain were performed. FINDINGS: There is mild diffuse cerebral and cerebellar atrophy. There are mild periventricular white matter low-density changes suggesting microvascular disease. Small basal ganglion lacunar infarcts are present. The left frontal white matter infarction is unchanged. There is no intracranial hemorrhage, mass, or mass effect. There are no imaging findings that would suggest an acute territorial infarction. The calvarium is intact. Intracranial atherosclerotic calcifications are present. IMPRESSION: MILD ATROPHY AND MICROVASCULAR WHITE MATTER CHANGES WITHOUT CHANGES OF AN ACUTE INTRACRANIAL ABNORMALITY. ACUTE INFARCT MAY BE INAPPARENT ON A BACKGROUND OF MICROVASCULAR DISEASE. MRI CAN BE PERFORMED IF CLINICALLY INDICATED. This exam was performed according to our departmental dose-optimization program, which includes automated exposure control, adjustment of the mA and/or kV according to patient size and/or use of iterative reconstruction technique. Electronically signed by: Daryn Zhong MD 03/28/2020 1:40 PM EXAM: Chest,1 View CLINICAL HISTORY: Confusion COMPARISON STUDY: Chest x-ray from July 13, 2018 TECHNIQUE: Single view chest x-ray FINDINGS: Single view of the chest demonstrates an enlarged cardiac silhouette. There is no overt edema or visible central vascular congestion. No large effusion is identified. There is no consolidation. Sternotomy wires are present. IMPRESSION: CARDIOMEGALY WITHOUT ACUTE ABNORMALITY. Electronically signed by: Daryn Zhong MD 03/28/2020 1:41 PM 03/28/20 12:38 IV Care:Saline Lock per Protoc QSHIFT Telemetry .ONCE Sodium Chloride 0.9% (Flush) [Saline Flush Syringe] 10 ml IV PRN PRN Pulse Oximetry Assessment DAILY 03/28/20 12:45 EKG STAT 03/29/20 09:00 Pulse Ox Daily Laboratory Results - last 24 hr 03/28/20 03/28/20 03/28/20 12:00 12:00 12:00 WBC 8.8 RBC 4.42 Hgb 14.5 Hct 41.8 MCV 94.6 MCH 32.9 H MCHC 34.8 RDW 13.3 Plt Count 251 MPV 9.4 Absolute Neuts (auto) 6.00 Absolute Lymphs (auto) 1.60 Absolute Monos (auto) 0.90 H Absolute Eos (auto) 0.30 Absolute Basos (auto) 0.00 Neutrophils % 67.6 Lymphocytes % 18.2 L Monocytes % 10.4 H Eosinophils % 3.4 Basophils % 0.4 PT 10.0 INR 1.01 PTT (SP) 20.5 L Sodium 140 Potassium 4.2 Chloride 106 Carbon Dioxide 25 Anion Gap 13.2 BUN 24 H Creatinine 0.83 BUN/Creatinine Ratio 28.9 H POC Glucose Random Glucose 90 Serum Osmolality 283.0 Calcium 9.4 Total Bilirubin 0.6 AST 21 ALT 18 Alkaline Phosphatase 82 Creatine Kinase 47 CK-MB (CK-2) 2.0 CK-MB (CK-2) % Not Reportable Troponin I < 0.02 Serum Total Protein 7.2 Albumin 4.1 Globulin 3.1 Albumin/Globulin Ratio 1.3 Urine Color Urine Appearance Urine pH Ur Specific [place] Urine Protein Urine Glucose (UA) Urine Ketones Urine Blood Urine Nitrite Urine Bilirubin Urine Urobilinogen Ur Leukocyte Esterase Urine RBC Urine WBC Ur Epithelial Cells Urine Bacteria 03/28/20 03/28/20 12:49 15:17 WBC RBC Hgb Hct MCV MCH MCHC RDW Plt Count MPV Absolute Neuts (auto) Absolute Lymphs (auto) Absolute Monos (auto) Absolute Eos (auto) Absolute Basos (auto) Neutrophils % Lymphocytes % Monocytes % Eosinophils % Basophils % PT INR PTT (SP) Sodium Potassium Chloride Carbon Dioxide Anion Gap BUN Creatinine BUN/Creatinine Ratio POC Glucose 94 Random Glucose Serum Osmolality Calcium Total Bilirubin AST ALT Alkaline Phosphatase Creatine Kinase CK-MB (CK-2) CK-MB (CK-2) % Troponin I Serum Total Protein Albumin Globulin Albumin/Globulin Ratio Urine Color Yellow Urine Appearance Clear Urine pH 5.5 Ur Specific [place] 1.025 Urine Protein Negative Urine Glucose (UA) Negative Urine Ketones Negative Urine Blood Negative Urine Nitrite Negative Urine Bilirubin Negative Urine Urobilinogen 0.2 Ur Leukocyte Esterase Negative Urine RBC 0-1 Urine WBC 0-1 Ur Epithelial Cells 0-1 Urine Bacteria 0 Vital Signs 03/28/20 03/28/20 03/28/20 12:24 13:24 14:01 Temperature 97.2 F L Pulse Rate [ 78 79 pulse ox] Respiratory 18 18 18 Rate Blood Pressure 187/89 206/81 181/101 [Left Arm] O2 Sat by Pulse 100 95 98 Oximetry 03/28/20 03/28/20 15:00 15:48 Temperature 96.7 F L Pulse Rate [ 80 75 pulse ox] Respiratory 18 18 Rate Blood Pressure 171/93 170/73 [Left Arm] O2 Sat by Pulse 95 99 Oximetry Departure - Departure Clinical Impression: Confusion, Dehydration, TIA (transient ischemic attack) Time of Disposition: 16:32 Disposition: Admit Patient Condition: Fair Departure Forms: ED Discharge - Pt. Copy, Patient Portal Self Enrollment Diet: resume usual diet Activity: as per physical therapy, increase activity as tolerated Referrals: Tristen Khalil MD [Primary Care Provider] - 1-2 Weeks Home Medications: Ambulatory Orders Lisinopril 20 mg PO DAILY 07/13/18 Quetiapine Fumarate [Seroquel] 25 mg PO BEDTIME 07/13/18 Atorvastatin Calcium [Lipitor] 40 mg PO BEDTIME 03/28/20 Clopidogrel Bisulfate [Plavix] 75 mg PO DAILY 03/28/20 Gabapentin 100 mg PO BEDTIME 03/28/20 Decision To Admit - Decistion To Admit Decision to Admit Date: 03/28/20 Decision to Admit Time: 15:30
[2020-03-28] MEDS ORDERED: SODIUM CHLORIDE 0.9% 500ML 500 ML IVS ONE (14:00)
--- NOTE | 2020-03-28 17:21 | HP ---
SUPERVISING PHYSICIAN: Daryl Santoyo MD CHIEF COMPLAINT: Altered mental status. HISTORY OF PRESENT ILLNESS: This is an 79 year-old female patient who was in her normal state at 9:30 this morning. Her home health nurse saw her and she seemed to be her normal self. Her caregiver then showed up around noon and noticed the patient was very subdued and had difficulty answering questions. She was brought to the Emergency Room. The patient still continued to be confused and talked inappropriately. She had word salad. Her vital signs on admission were temperature 97.2, heart rate 78, blood pressure 187/89, respiratory rate 18, oxygen saturation 100% on room air. Lab was done and her CBC was unremarkable. Her electrolytes were unremarkable. Liver function tests were normal. Urinalysis was within normal limits. Her rapid Covid-19 swab was negative. Chest x-ray showed cardiomegaly without acute abnormality. Head CT showed mild atrophy and microvascular white matter changes without changes of an acute intracranial abnormality, acute infarct may be apparent on the background of microvascular disease. MRI could be performed if clinically indicated. She was given some Zofran, fluids and an aspirin in the Emergency Room and she was placed in observation in the hospital. PAST MEDICAL HISTORY: 1. Carotid artery stenosis. 2. Congestive heart failure with grade 1 diastolic dysfunction. Last echocardiogram was in July 2018. She has an ejection fraction of 60%. 3. Coronary artery disease. . 4. Hypertension. 5. History of CVA. 6. Pituitary enlargement. PAST SURGICAL HISTORY: 1. Bilateral joint replacements of the knee. 2. Hysterectomy. 3. Back surgery. 4. Corneal transplant bilateral. 5. Breast implants with subsequent replacement. CURRENT MEDICATIONS: Per the EMR and awaiting verification . ALLERGIES: No known drug allergies. FAMILY HISTORY: Positive for CA, stroke, osteoporosis. SOCIAL HISTORY: She lives in [place]. She has one child. She has no history of tobacco, ETOH or illicit drug use. REVIEW OF SYSTEMS: Unable to obtain due to patient's mental status. PHYSICAL EXAMINATION: VITAL SIGNS: Temperature 98.4, heart rate 86, blood pressure 155/68, respiratory rate 16, oxygen saturation 95% on room air. GENERAL: This is an 79 year-old female patient who is lying in her hospital bed. She is in no acute distress. HEENT: Normocephalic and atraumatic. Pupils are equal and reactive. Oropharynx is clear. NECK: Supple. CHEST: Essentially clear to auscultation bilaterally. CARDIOVASCULAR: Regular rate and rhythm. ABDOMEN: Soft, nondistended, non-tender. Bowel sounds are positive. BACK: Exam is deferred. SKIN: [place], warm and dry. EXTREMITIES: NEUROLOGIC: She is alert, oriented to self only. She has expressive aphasia and work salad. Labs and films are as per the history of present illness. ASSESSMENT: 1. Altered mental status. 2. TIA versus CVA. 3. Carotid artery stenosis. 4. Congestive heart failure with a grade 1 diastolic dysfunction with ejection fraction of 60%. Last echocardiogram was in July 2018. 5. History of CVA. 6. Hyperlipidemia. 7. Hypertension. PLAN: The patient has been placed in observation. She will be started on the TIA, CVA guidelines. We will continue her home medications once they are verified. She will have an MRI of the brain in the morning as well as a carotid ultrasound and echocardiogram. She is already on Plavix and will continue her on aspirin and Lovenox. Neuro checks will also be done. Routine lab for in the morning. We will continue to monitor closely and follow as needed. #[id number] [facility]
[2020-03-28] MEDS ORDERED: ONDANSETRON INJ 4 MG/2 ML VIAL IV PRN (18:41)
[2020-03-28] MEDS ORDERED: IV SET AND CAP CHANGE INJ INJ SCH (19:00)
[2020-03-28] MEDS ORDERED: ENOXAPARIN SODIUM 40 MG/0.4 ML SYG SUBCU SCH (21:00)
[2020-03-28] MEDS: SODIUM CHLORIDE 0.9% (FLUSH) 10 ML SYG IV SCH (21:06)
[2020-03-29] MEDS ORDERED: PANTOPRAZOLE SODIUM IV 40 MG VIAL IV SCH (06:30)
[2020-03-29] MEDS ORDERED: ASPIRIN TABLET 325 MG TAB PO SCH (09:00)
[2020-03-29] MEDS: SODIUM CHLORIDE 0.9% (FLUSH) 10 ML SYG IV SCH (09:16)
[2020-03-29 14:20] VITALS: BP 136/65; TEMP 97.8; O2SAT 98
--- NOTE | 2020-03-29 15:50 | CT ---
CLINICAL HISTORY PROVIDED: TIA TECHNIQUE: Contrast enhanced axial spiral CT images were obtained with multiple reconstructions performed including MIP in various projections for CT angiography. 3D MIP reformats provided. Exam covers from the aortic arch to above the [place]. Unless specified otherwise, proximal internal carotid stenoses are measured by the NASCET technique where residual lumen diameter is compared to the downstream normal ICA diameter. Internal carotid artery diameter stenosis grading system is mild <50% , moderate 50 -69%, and severe 70 % and greater stenosis. This exam was performed according to our departmental dose-optimization program, which includes automated exposure control, adjustment of the mA and/or kV according to patient size and/or use of iterative reconstruction technique. COMPARISON: None available. FINDINGS: Extracranial: Aortic Arch and Proximal Great Vessels: Atherosclerotic plaque in the aortic arch and at the origins of the great vessels. Right Carotid: 50-69% focal stenosis at the carotid bulb and proximal right internal carotid artery. Plaque in the carotid siphon. Left Carotid: Calcified and noncalcified eccentric atherosclerotic plaque resulting in 50-69% segmental stenosis of the carotid bulb and proximal left internal carotid artery. Calcified plaque in the carotid siphon. Right Vertebral: Unremarkable. Left Vertebral: Unremarkable. Intracranial: Right Anterior Circulation: Unremarkable. Left Anterior Circulation: Unremarkable. Posterior Circulation: Unremarkable. Anterior Communicating Artery: Present. Unremarkable. Right Posterior Communicating Artery: Present. Unremarkable. Left Posterior Communicating Artery: Present. Unremarkable. Venous structures: Visible venous structures appear patent and unremarkable. Other Incidental Findings: None of significance. IMPRESSION: 50-69% stenoses of the bilateral internal carotid arteries. Electronically signed by: Naatn Fitzgerald MD 03/29/2020 3:48 PM [facility]
--- NOTE | 2020-03-29 15:50 | CT ---
CLINICAL HISTORY PROVIDED: TIA TECHNIQUE: Contrast enhanced axial spiral CT images were obtained with multiple reconstructions performed including MIP in various projections for CT angiography. 3D MIP reformats provided. Exam covers from the aortic arch to above the [place]. Unless specified otherwise, proximal internal carotid stenoses are measured by the NASCET technique where residual lumen diameter is compared to the downstream normal ICA diameter. Internal carotid artery diameter stenosis grading system is mild <50% , moderate 50 -69%, and severe 70 % and greater stenosis. This exam was performed according to our departmental dose-optimization program, which includes automated exposure control, adjustment of the mA and/or kV according to patient size and/or use of iterative reconstruction technique. COMPARISON: None available. FINDINGS: Extracranial: Aortic Arch and Proximal Great Vessels: Atherosclerotic plaque in the aortic arch and at the origins of the great vessels. Right Carotid: 50-69% focal stenosis at the carotid bulb and proximal right internal carotid artery. Plaque in the carotid siphon. Left Carotid: Calcified and noncalcified eccentric atherosclerotic plaque resulting in 50-69% segmental stenosis of the carotid bulb and proximal left internal carotid artery. Calcified plaque in the carotid siphon. Right Vertebral: Unremarkable. Left Vertebral: Unremarkable. Intracranial: Right Anterior Circulation: Unremarkable. Left Anterior Circulation: Unremarkable. Posterior Circulation: Unremarkable. Anterior Communicating Artery: Present. Unremarkable. Right Posterior Communicating Artery: Present. Unremarkable. Left Posterior Communicating Artery: Present. Unremarkable. Venous structures: Visible venous structures appear patent and unremarkable. Other Incidental Findings: None of significance. IMPRESSION: 50-69% stenoses of the bilateral internal carotid arteries. Electronically signed by: Natan Fitzgerald MD 03/29/2020 3:48 PM [facility]
--- NOTE | 2020-03-30 10:21 | DS ---
SUPERVISING PHYSICIAN: Daryl Santoyo MD ADMISSION DIAGNOSIS: 1. Altered mental status. 2. TIA versus CVA. 3. Carotid artery stenosis. 4. Congestive heart failure with a grade 1 diastolic dysfunction with ejection fraction of 60%. Last echocardiogram was in July 2018. 5. History of CVA. 6. Hyperlipidemia. 7. Hypertension. DISCHARGE DIAGNOSIS: 1. Possible TIA in patient showing no residual effected in the baseline mental status. 2. History of congestive heart failure with grade 1 diastolic dysfunction with last echocardiogram was in July 2018 showing ejection fraction of 60%. 3. History of previous CVA. 4. Hyperlipidemia. 5. Hypertension. REASON FOR ADMISSION: This is an 79 year-old female patient who was in her normal state at 9:30 this morning. Her home health nurse saw her and she seemed to be her normal self. Her caregiver then showed up around noon and noticed the patient was very subdued and had difficulty answering questions. She was brought to the Emergency Room. The patient still continued to be confused and talked inappropriately. She had word salad. Her vital signs on admission were temperature 97.2, heart rate 78, blood pressure 187/89, respiratory rate 18, oxygen saturation 100% on room air. Lab was done and her CBC was unremarkable. Her electrolytes were unremarkable. Liver function tests were normal. Urinalysis was within normal limits. Her rapid Covid-19 swab was negative. Chest x-ray showed cardiomegaly without acute abnormality. Head CT showed mild atrophy and microvascular white matter changes without changes of an acute intracranial abnormality, acute infarct may be apparent on the background of microvascular disease. MRI could be performed if clinically indicated. She was given some Zofran, fluids and an aspirin in the Emergency Room and she was placed in observation in the hospital. LABORATORY: White count on discharge 2,100, hemoglobin 13.3, hematocrit 27.4, platelet count 217,000, differential does show to be without a left shift. Coagulation studies showed normal PT/PTT. Chemistries showed normal electrolytes. Creatinine 0.8. Liver functions all within normal limits. Calcium 9, magnesium 2.0. Cholesterol 181, triglycerides 76, HDL 55, LDL 102. Urinalysis within normal limits. MICROBIOLOGY: Nasal swab was negative for both Covid and all other bacterial and viral targets including influenza A and B. RADIOLOGY: Chest x-ray per radiology interpretation of single view chest shows cardiomegaly without acute abnormalities. CT of the head without contrast showed mild atrophy and microvascular white matter changes without changes in acute intracranial abnormalities. MRI was pending and not available at time of admission, needs to be done as an outpatient. She did have a CT of the head and neck prior to discharge, both carotids and echocardiograms were not available which need to be followed up on the echocardiogram. CT of the neck and head showed no significant findings, 50 to 69% stenosis of bilateral internal carotid arteries. No intracranial abnormalities were noted per radiology interpretation. Please see that report for details. 12-lead EKG from the Emergency Room showed sinus rhythm without any ST or T-wave changes to indicate acute ischemia. HOSPITAL COURSE: Ms. Bazan was admitted for TIA and further neurological monitoring. She remained stable, her vital signs remained stable. She has had no signs of neurological deficits. She had evaluation by physical therapy with no deficits noted. Vital signs remained stable. On discharge she was afebrile at 97.8, pulse 68, blood pressure 136/65, respirations 12, oxygen saturation 98% on room air. Neurologically, she was alert and oriented x3 with no obvious neurological or motor deficits. PLAN: Ms. Bazan was discharged to followup with Dr. Khalil for outpatient workup. She was already on Plavix, this was continued. She will need an MRI of the head as this was not available at time of admission. She did get a CTA, CT of the neck were without any significant findings. She will also need a repeat echocardiogram as applicable as those were not available at time of admission. No new medications prescribed. She was to resume her usual diet. She was already on a statin. She will need followup and continued monitoring as needed. She was to return to the Emergency Department as needed if she has any concerning symptoms. She does have home health which will be continued with [facility]. DISCHARGE MEDICATIONS: 1. Seroquel 25 mg. 2. Lisinopril 25 mg daily. 3. Gabapentin 100 mg daily. 4. Plavix 75 mg daily. 5. Lipitor 40 mg daily. CONDITION ON DISCHARGE: Stable and improving. DISPOSITION: Patient is discharged home. #[id number] [facility]
== END 2020-03-29 16:36 | disposition home health service (06) ==
LOC: ER 12:24 → MS 17:20
PROVIDERS: ADMIT Nurse Practitioner Acute Care; ATTEND Nurse Practitioner Family
DX: R41.82 Altered mental status, unspecified (principal); R47.01 Aphasia; E86.0 Dehydration; I11.0 Hypertensive heart disease with heart failure; I50.32 Chronic diastolic (congestive) heart failure; E78.5 Hyperlipidemia, unspecified; I44.0 Atrioventricular block, first degree; I65.29 Occlusion and stenosis of unspecified carotid artery; I25.10 Atherosclerotic heart disease of native coronary artery without angina pectoris; K21.9 Gastro-esophageal reflux disease without esophagitis; Z86.73 Personal history of transient ischemic attack (TIA), and cerebral infarction without residual deficits; Z20.828 Contact with and (suspected) exposure to other viral communicable diseases; Z79.02 Long term (current) use of antithrombotics/antiplatelets; Z79.899 Other long term (current) drug therapy; Z94.7 Corneal transplant status; Z96.643 Presence of artificial hip joint, bilateral; Z96.653 Presence of artificial knee joint, bilateral; Z82.3 Family history of stroke; Z82.49 Family history of ischemic heart disease and other diseases of the circulatory system; Z82.62 Family history of osteoporosis
CPT/HCPCS: 96374; 96375; 96372; J2405; J7040; J1650; A4216; 82553; 80053 ×2; 82948; 80061; 36415 ×2; 81001; 85025 ×2; 82550; 83735; 85730; 85610; 84484; 36416; 71045; 70450; 70496; 70498; 94760 ×3; 97116; 97162; 99285; 93005; G0378; 87581; 87486; 87633; 87635 ×2

== ENCOUNTER → 2020-05-03 | Outpatient (CLI) | payer MEDICARE ==
--- NOTE | 2020-05-04 11:18 | MRI ---
EXAM DESCRIPTION: Brain w/oContrast CLINICAL HISTORY: TIA COMPARISON: 06/08/2018 TECHNIQUE: Non contrast MRI of the brain is performed according to our usual protocol including multiplanar multi sequence technique. FINDINGS: Stable findings of advanced subcortical and periventricular leukomalacia with old lacunar infarct left caudate and lentiform nuclei. No acute or subacute ischemia. No hemorrhage or mass. IMPRESSION: Chronic ischemic changes-no acute abnormality. Electronically signed by: Efra Anderson MD 05/04/2020 11:17 AM [facility]
== END ==
LOC: MRI 10:51
PROVIDERS: ATTEND Family Medicine
DX: G45.9 Transient cerebral ischemic attack, unspecified (principal)